=== PATIENT | female | born 1955 | race Caucasian/White ===

== ENCOUNTER 2020-01-20 07:39 | Emergency (ER) | payer MEDICARE ==
[2020-01-20] MEDS ORDERED: Norepinephrine 8 MG/0.9% NS 250 ML ONE (07:41)
--- NOTE | 2020-01-20 08:11 | RAD ---
XR Chest 1 View Portable HISTORY: Respiratory failure FINDINGS: There is an endotracheal tube with tip at the level of the clavicular heads. There is a left-sided ce ntral venous catheter with tip in the projection of the SVC. The heart size is normal. The lungs are well expanded without focal areas of consolidation, pneumothorax or pleural effusions.
[2020-01-20 08:25] LABS: Hemoglobin 12.8 g/dL (12.0-16.0); Mean Corpuscular HGB CONC 29.5 g/dL (32.0-36.0); Mean Corpuscular Hemoglobin 30.8 pg (27.0-31.0); Mean Platelet Volume 8.2 fL (7.4-10.4); Platelet Count 215 thou/uL (130-400); RBC Distribution Width 14.2 % (11.5-14.5); Red Blood Cell (RBC) Count 4.16 mill/uL (4.20-5.40); White Blood Cell (WBC) Count 16.8 thou/uL (4.8-10.8)
[2020-01-20 08:41] LABS: ALT (SGPT) 642 U/L (8-55); AST (SGOT) 928 U/L (5-34); Albumin 3.1 g/dL (3.4-4.8); Alkaline Phosphatase 94 U/L (40-110); BUN (Urea Nitrogen) 21 mg/dL (9.8-20.1); Bilirubin, Total 0.4 mg/dL (0.2-1.2); Calc. Creatinine Clearance 0 mL/min (70-130); Calcium 7.9 mg/dL (7.8-10.44); Chloride 111 mmol/L (98-107); Estimated GFR-MDRD 34; Globulin 2.8 g/dL (2.4-3.5); Glucose 452 mg/dL (80-115); Protein, Total 5.9 g/dL (6.0-8.3); Sodium 138 mmol/L (136-145)
[2020-01-20 08:42] LABS: CKMB 87.3 ng/mL (0-6.6)
[2020-01-20 08:47] LABS: Carbon Dioxide Less than 8 mmol/L (23-31); Potassium 6.7 mmol/L (3.5-5.1)
[2020-01-20 08:56] LABS: CK (CPK) 4513 U/L (29-168)
[2020-01-20 09:02] LABS: Band 23 % (5-11); Burr Cells SLIGHT = 2-5 cells (100X) (0-1/hpf); Lymphocytes 12 % (21-51); MDiff Complete? YES; Metamyelocyte 1 % (0-0); Monocytes 6 % (0-10); Neutrophil 58 % (42-75); Polychromasia SLIGHT = 2-3 cells (100X) (0-2/hpf); Vacuoles SLIGHT
== END 2020-01-20 08:31 | disposition expired ==
LOC: ERS 07:39
DX: I46.9 Cardiac arrest, cause unspecified (principal); A41.9 Sepsis, unspecified organism; R65.21 Severe sepsis with septic shock; E11.9 Type 2 diabetes mellitus without complications; E03.9 Hypothyroidism, unspecified; G40.909 Epilepsy, unspecified, not intractable, without status epilepticus; F41.9 Anxiety disorder, unspecified; Z79.82 Long term (current) use of aspirin; Z79.84 Long term (current) use of oral hypoglycemic drugs; Z79.899 Other long term (current) drug therapy
CPT/HCPCS: 36556; 71045; 80053; 82550; 82553; 83605; 83880; 84484; 85025; 87040; 93005; 94002; 94760; 96365